=== PATIENT | male | born 1950 | race Caucasian/White ===

== ENCOUNTER → 2017-08-10 | Outpatient (CLI) | payer MEDICARE ==
[~2017-08-10] MED LIST: ASPI-515 PO; ATOR10TA9 PO; KRIL500C PO; LISI-167 PO; NAPR220C2 PO; OXYC-302 PO
== END | disposition home or self-care (01) ==
LOC: CFH 15:40
PROVIDERS: ATTEND Internal Medicine Cardiovascular Disease
DX: I08.0 Rheumatic disorders of both mitral and aortic valves (principal); E78.5 Hyperlipidemia, unspecified; I10 Essential (primary) hypertension; Z87.891 Personal history of nicotine dependence
CPT/HCPCS: 93306

== ENCOUNTER → 2018-08-13 | Outpatient (CLI) | payer MEDICARE ==
[~2018-08-13] MED LIST changes: +REGADENOSON 0.4 MG/5 ML SYRINGE ONE
== END | disposition home or self-care (01) ==
LOC: CFH 13:01
PROVIDERS: ATTEND Nurse Practitioner Primary Care
DX: R94.31 Abnormal electrocardiogram [ECG] [EKG] (principal); I25.10 Atherosclerotic heart disease of native coronary artery without angina pectoris; R00.1 Bradycardia, unspecified
CPT/HCPCS: 78452; 93017; A9502; J2785

== ENCOUNTER 2018-08-21 10:11 | Inpatient (IN) | payer MEDICARE ==
[~2018-08-21] VITALS: Ht 172.7 cm; Wt 79.7 kg
[~2018-08-21 10:11] MED LIST changes: -REGADENOSON 0.4 MG/5 ML SYRINGE ONE
[2018-08-21] MEDS ORDERED: SODIUM CHLORIDE 0.9% 1,000 ML IV ONE (10:38)
[2018-08-21 10:44] VITALS: BP 181/84
[2018-08-21 10:55] LABS: BASOPHILS # (AUTO) 0.08 x10^3/uL (0-0.1); BASOPHILS % (AUTO) 1 % (0-1); EOSINOPHILS # (AUTO) 0.24 x10^3/uL (0-0.4); EOSINOPHILS % (AUTO) 3 % (1-7); LYMPHOCYTES % (AUTO) 22 % (22-44); MD NO; MEAN CORPUSCULAR HEMOGLOBIN 34.8 pg (27.5-34.5); MEAN CORPUSCULAR HGB CONC 34.5 g/dL (33.2-36.2); MEAN CORPUSCULAR VOLUME 100.8 fL (81-97); MEAN PLATELET VOLUME 7.8 fL (7.4-10.4); MONOCYTES # (AUTO) 0.42 x10^3/uL (0.2-0.8); MONOCYTES % (AUTO) 6 % (2-9); NEUTROPHILS # (AUTO) 4.99 x10^3/uL (1.8-6.8); NEUTROPHILS % (AUTO) 68 % (42-75); PLATELET COUNT 185 x10^3/uL (130-400); RED BLOOD COUNT 4.65 x10^6/uL (4.38-5.82); RED CELL DISTRIBUTION WIDTH 14.4 % (9.4-14.8)
[2018-08-21] MEDS ORDERED: PLEASE ENTER HEIGHT AND WEIGHT MC SCH (11:00)
[2018-08-21] MEDS ORDERED: UBID100C41 PO (11:02)
[2018-08-21] MEDS ORDERED: HYDR200T72 PO (11:02)
[2018-08-21] MEDS ORDERED: HYDR-3245 PO (11:02)
[2018-08-21] MEDS ORDERED: MELO15TA24 PO (11:02)
[2018-08-21] MEDS ORDERED: METH2.5T PO (11:02)
[2018-08-21] MEDS ORDERED: FOLI-17 PO (11:02)
[2018-08-21] MEDS ORDERED: ROSU5TAB PO (11:02)
[2018-08-21] MEDS ORDERED: METO25TA91 PO (11:02)
[2018-08-21] MEDS ORDERED: CHOL100012 PO (11:02)
[2018-08-21] MEDS ORDERED: MEGA RED PO (11:02)
[2018-08-21 11:08] LABS: ALANINE AMINOTRANSFERASE 24 U/L (12-78); ALBUMIN 3.9 g/dL (3.4-5.0); ANION GAP 8 mmol/L (5-15); CALCIUM 9.1 mg/dL (8.5-10.1); CHLORIDE 111 mmol/L (98-107); CREATININE 0.95 mg/dL (0.7-1.3)
[2018-08-21 11:10] LABS: ALKALINE PHOSPHATASE 80 U/L (45-117); BILIRUBIN,TOTAL 0.7 mg/dL (0.2-1.0); TOTAL PROTEIN 7.6 g/dL (6.4-8.2)
[2018-08-21] MEDS ORDERED: MIDAZOLAM 1 MG/ML, 2ML ONE ×3 (11:52→13:11)
[2018-08-21] MEDS ORDERED: FENTANYL PF 100 MCG/2ML ONE ×2 (11:52→13:11)
[2018-08-21] MEDS ORDERED: BUPIVACAINE 0.25% ONE (11:53)
[2018-08-21] MEDS ORDERED: HEPARIN 1,000 UNITS/ML, 10ML ONE (13:16)
[2018-08-21] MEDS ORDERED: BIVALIRUDIN 250 MG ONE (13:17)
[2018-08-21] MEDS ORDERED: TICAGRELOR 90 MG TABLET ONE (13:17)
[2018-08-21] MEDS ORDERED: LABETALOL 5MG/ML, 20ML ONE (13:53)
[2018-08-21] MEDS ORDERED: hydrALAzine 20 MG/ML, 1ML ONE (13:55)
[2018-08-21 14:48] VITALS: BP 135/65
[2018-08-21] MEDS ORDERED: ACETAMINOPHEN 325 MG TABLET PO PRN (17:00)
[2018-08-21] MEDS ORDERED: ONDANSETRON 2MG/ML, 2ML IVPush PRN (17:00)
[2018-08-21] MEDS ORDERED: BISACODYL 5 MG EC TABLET PO PRN (17:00)
[2018-08-21] MEDS: HYDROcodone/APAP 10/325 MG TABLET PO PRN (17:26)
[2018-08-21 19:10] VITALS: BP 116/57
[2018-08-22 00:56] VITALS: BP 127/69
[2018-08-22 06:16] LABS: ALBUMIN 3.3 g/dL (3.4-5.0); ANION GAP 9 mmol/L (5-15); CALCIUM 8.5 mg/dL (8.5-10.1); CHLORIDE 112 mmol/L (98-107)
[2018-08-22 06:17] LABS: CREATININE 1.04 mg/dL (0.7-1.3)
[2018-08-22 08:24] VITALS: BP 129/50
[2018-08-22] MEDS: LISINOPRIL 10 MG TABLET PO SCH (09:00)
[2018-08-22] MEDS ORDERED: METOPROLOL SUCCINATE 25 MG TAB.ER.24H PO SCH (09:00)
[2018-08-22] MEDS ORDERED: MAGNESIUM HYDROXIDE 8%, 30ML UDC PO PRN (09:30)
[2018-08-22] MEDS ORDERED: CHLORHEXIDINE 15 ML UDC MM PRN (09:30)
[2018-08-22] MEDS ORDERED: INSULIN LISPRO 100 UNITS/ML, PEN SQ-INSULIN SCH (09:30)
[2018-08-22] MEDS ORDERED: METOPROLOL TARTRATE 25 MG TABLET PO ONE (09:30)
[2018-08-22] MEDS ORDERED: ACETAMINOPHEN 325 MG TABLET PO PRN (09:30)
[2018-08-22] MEDS ORDERED: LISINOPRIL 20 MG TABLET ONE (09:31)
[2018-08-22] MEDS ORDERED: LISINOPRIL 5 MG TABLET ONE (09:31)
[2018-08-22] MEDS: FOLIC ACID 1 MG TABLET PO SCH (09:38)
[2018-08-22] MEDS: ASPIRIN 81 MG TABLET EC PO SCH (09:38)
[2018-08-22 09:39] LABS: INTERNATIONAL NORMALIZED RATIO 1.04 (0.93-1.1); PROTHROMBIN TIME 10.7 Seconds (9.6-11.5)
[2018-08-22] MEDS: CHOLECALCIFEROL 1,000 UNIT TABLET PO SCH (09:39)
[2018-08-22 09:41] LABS: ALANINE AMINOTRANSFERASE 23 U/L (12-78); ALBUMIN 3.6 g/dL (3.4-5.0); ANION GAP 9 mmol/L (5-15); CHLORIDE 111 mmol/L (98-107); CREATININE 1.03 mg/dL (0.7-1.3)
[2018-08-22 09:42] LABS: BASOPHILS # (AUTO) 0.03 x10^3/uL (0-0.1); BASOPHILS % (AUTO) 0 % (0-1); EOSINOPHILS # (AUTO) 0.37 x10^3/uL (0-0.4); EOSINOPHILS % (AUTO) 5 % (1-7); LYMPHOCYTES % (AUTO) 15 % (22-44); MD NO; MEAN CORPUSCULAR HEMOGLOBIN 34.4 pg (27.5-34.5); MEAN CORPUSCULAR HGB CONC 33.9 g/dL (33.2-36.2); MEAN CORPUSCULAR VOLUME 101.3 fL (81-97); MEAN PLATELET VOLUME 7.9 fL (7.4-10.4); MONOCYTES % (AUTO) 6 % (2-9); NEUTROPHILS # (AUTO) 5.88 x10^3/uL (1.8-6.8); NEUTROPHILS % (AUTO) 74 % (42-75); PLATELET COUNT 173 x10^3/uL (130-400); RED BLOOD COUNT 4.57 x10^6/uL (4.38-5.82); RED CELL DISTRIBUTION WIDTH 14.1 % (9.4-14.8)
[2018-08-22 09:43] LABS: ALKALINE PHOSPHATASE 75 U/L (45-117); BILIRUBIN,TOTAL 0.9 mg/dL (0.2-1.0); TOTAL PROTEIN 7.3 g/dL (6.4-8.2)
[2018-08-22 10:16] LABS: HEMOGLOBIN A1C 5.5 % (4.2-6.3)
[2018-08-22] MEDS: HYDROcodone/APAP 10/325 MG TABLET PO PRN ×2 (11:04→16:32)
[2018-08-22] MEDS ORDERED: OMNIPAQUE 350 MG/ML, 100ML BOTTLE ONE (12:05)
[2018-08-22 14:19] VITALS: BP 153/79
[2018-08-22 14:19] LABS: MICROSCOPIC NOT IND
[2018-08-22 19:59] VITALS: BP 153/80
[2018-08-22] MEDS: SODIUM CHLORIDE FLUSH 10ML SYR IVF SCH (20:18)
[2018-08-23] VITALS (11 sets, daily range): BP systolic 94–159; BP diastolic 50–85
[2018-08-23] MEDS ORDERED: ALBUMIN HUMAN 5% 500 ML IV PRN ×2 (03:00→14:00)
[2018-08-23] MEDS: HYDROcodone/APAP 10/325 MG TABLET PO PRN (04:26)
[2018-08-23] MEDS ORDERED: METOPROLOL TARTRATE 50 MG TABLET PO ONE (05:00)
[2018-08-23] MEDS ORDERED: PAPAVERINE 30 MG/ML, 2ML ONE (06:15)
[2018-08-23] MEDS ORDERED: HEPARIN 1,000 UNITS/ML, 10ML ONE (06:15)
[2018-08-23] MEDS ORDERED: FENTANYL PF 250 MCG/5ML ONE ×4 (06:56)
[2018-08-23] MEDS ORDERED: MIDAZOLAM 10MG/2 ML ONE (06:56)
[2018-08-23] MEDS ORDERED: ROCURONIUM 10MG/ML,5ML ONE (06:59)
[2018-08-23] MEDS ORDERED: AMINOCAPROIC ACID 250 MG/ML, 20ML ONE (06:59)
[2018-08-23] MEDS ORDERED: PHENYLEPHRINE 10 MG in SODIUM CHLORIDE 0.9% 249 ML IV PRN (07:30)
[2018-08-23] MEDS ORDERED: REGULAR INSULIN 62.5 UNITS in SODIUM CHLORIDE 0.9% 249.375 ML IV PRN ×2 (07:30→11:07)
[2018-08-23] MEDS ORDERED: VANCOMYCIN 1,300 MG in SODIUM CHLORIDE 0.9% 250 ML IV PRN (07:30)
[2018-08-23] MEDS ORDERED: VANCOMYCIN 1,300 MG in SODIUM CHLORIDE 0.9% 250 ML IVPB ONE (07:30)
[2018-08-23] MEDS ORDERED: EPINEPHRINE 2 MG in SODIUM CHLORIDE 0.9% 248 ML IV SCH (07:30)
[2018-08-23] MEDS ORDERED: CEFUROXIME 1.5 GM in SODIUM CHLORIDE 0.9% 50 ML IVPB PRN (07:30)
[2018-08-23] MEDS ORDERED: POTASSIUM CHLORIDE 80 MEQ, SODIUM BICARBONATE 8.4% 10 MEQ, MAGNESIUM SULFATE 0.5 GM, LI... IV PRN ×3 (07:30)
[2018-08-23] MEDS ORDERED: DEXMEDETOMIDINE 200 MCG in SODIUM CHLORIDE 0.9% 48 ML IV SCH (07:30)
[2018-08-23] MEDS ORDERED: MANNITOL PMX 20% 500 ML IVPB PRN ×3 (07:30)
[2018-08-23] MEDS: CHOLECALCIFEROL 1,000 UNIT TABLET PO SCH (09:00)
[2018-08-23] MEDS: ASPIRIN 81 MG TABLET EC PO SCH (09:00)
[2018-08-23] MEDS: LISINOPRIL 10 MG TABLET PO SCH (09:00)
[2018-08-23] MEDS ORDERED: MUPIROCIN OINT 2%, 22GM TP SCH (09:00)
[2018-08-23] MEDS: DOCUSATE 100 MG CAPSULE PO SCH ×2 (09:00→20:46)
[2018-08-23] MEDS: FOLIC ACID 1 MG TABLET PO SCH (09:00)
[2018-08-23] MEDS: SODIUM CHLORIDE FLUSH 10ML SYR IVF SCH ×2 (09:00→21:53)
[2018-08-23] MEDS ORDERED: PROPOFOL 10 MG/ML, 20ML ONE (09:35)
[2018-08-23] MEDS ORDERED: PROTAMINE SULFATE 10 MG/ML, 25ML ONE ×3 (09:35→10:52)
[2018-08-23] MEDS ORDERED: EPINEPHRINE 1 MG/ML, 1ML ONE (09:36)
[2018-08-23] MEDS ORDERED: PHENYLEPHRINE 10 MG/ML ONE (09:36)
[2018-08-23] MEDS ORDERED: GLYCOPYRROLATE 0.2MG/1ML, 5ML ONE (10:14)
[2018-08-23] MEDS ORDERED: NITROGLYCERIN/D5W PMX 250 ML IV PRN (11:07)
[2018-08-23] MEDS ORDERED: VASOPRESSIN 50 UNIT in SODIUM CHLORIDE 0.9% 247.5 ML IV PRN (11:07)
[2018-08-23] MEDS ORDERED: SODIUM CHLORIDE 0.9% 1,000 ML IV PRN (11:07)
[2018-08-23] MEDS ORDERED: DOBUTAMINE 250 MG in SODIUM CHLORIDE 0.9% 230 ML IV PRN (11:07)
[2018-08-23] MEDS ORDERED: LIDOCAINE 2% 100MG/5ML SYRINGE ONE (11:24)
[2018-08-23] MEDS ORDERED: SODIUM BICARB 8.4%, 50ML SYRINGE ONE (11:24)
[2018-08-23] MEDS ORDERED: HEPARIN 1,000 UNITS/ML, 30ML ONE ×2 (11:25→13:48)
[2018-08-23] MEDS ORDERED: ALBUMIN HUMAN 25% 50 ML ONE (11:25)
[2018-08-23] MEDS: KSCALE TO 4.5 IV SCH ×3 (11:30→23:21)
[2018-08-23] MEDS ORDERED: DEXTROSE 4 GM TAB.CHEW PO PRN (11:30)
[2018-08-23] MEDS ORDERED: BISACODYL 10 MG SUPP PR PRN (11:30)
[2018-08-23] MEDS ORDERED: PROCHLORPERAZINE 5 MG/ML, 2ML IVPush PRN (11:30)
[2018-08-23] MEDS ORDERED: SODIUM BICARB 8.4%, 50ML SYRINGE IV PRN (11:30)
[2018-08-23] MEDS ORDERED: EPINEPHRINE 2 MG in SODIUM CHLORIDE 0.9% 248 ML IV PRN (11:30)
[2018-08-23] MEDS ORDERED: INSULIN REGULAR 100 UNITS/ML, 3ML VIAL IVPush PRN (11:30)
[2018-08-23] MEDS ORDERED: GLUCAGON 1 MG IM PRN (11:30)
[2018-08-23] MEDS ORDERED: MIDAZOLAM 1 MG/ML, 5ML IVPush PRN (11:30)
[2018-08-23] MEDS ORDERED: ACETAMINOPHEN 325 MG TABLET PO PRN (11:30)
[2018-08-23] MEDS ORDERED: ONDANSETRON 2MG/ML, 2ML IVPush PRN (11:30)
[2018-08-23] MEDS ORDERED: DEXTROSE 50%, 50ML SYRINGE IVPush PRN (11:30)
[2018-08-23] MEDS ORDERED: ACETAMINOPHEN 650 MG SUPP PR PRN (11:30)
[2018-08-23] MEDS ORDERED: BISACODYL 5 MG EC TABLET PO PRN (11:30)
[2018-08-23 11:52] LABS: GLUCOSE BY BLOOD GAS ANALYZER 116 mg/dL (70-110); HEMOGLOBIN BY BLOOD GAS ANALYZ 12.9 g/dL (14.0-18.0); POTASSIUM BY BLOOD GAS ANALYZR 3.6 mmol/L (3.6-5.5)
[2018-08-23 12:02] LABS: INTERNATIONAL NORMALIZED RATIO 1.27 (0.93-1.1)
[2018-08-23] MEDS: MAGNESIUM SULFATE 1 GM in SODIUM CHLORIDE 0.9% 50 ML IVPB SCH (12:18)
[2018-08-23] MEDS ORDERED: NOVOSEVEN RT (FACTOR VIIA) RECOMB 1,000 MCG IVPush STA (12:54)
[2018-08-23] MEDS ORDERED: PROTAMINE SULFATE 50 MG in SODIUM CHLORIDE 0.9% 50 ML IV ONE (13:00)
[2018-08-23] MEDS ORDERED: POTASSIUM CHLORIDE PMX 100 ML IVPB ONE (13:00)
[2018-08-23] MEDS: DEXMEDETOMIDINE 200 MCG in SODIUM CHLORIDE 0.9% 48 ML IV PRN ×4 (13:05→21:00)
[2018-08-23] MEDS: morphine SULFATE 10 MG/ML, 1ML IVPush PRN ×4 (13:43→22:33)
[2018-08-23] MEDS ORDERED: POTASSIUM CHLORIDE 30 MEQ in SODIUM CHLORIDE 0.9% 100 ML IV ONE (16:00)
[2018-08-23] MEDS: INSULIN LISPRO 100 UNITS/ML, PEN SQ-INSULIN SCH ×2 (16:06→20:47)
[2018-08-23] MEDS: LACTATED RINGERS 1,000 ML IV PRN ×2 (17:35→17:36)
[2018-08-23] MEDS ORDERED: ALBUMIN HUMAN 5% 500 ML IV ONE (18:00)
[2018-08-23] MEDS ORDERED: CALCIUM CHLORIDE 13.6 MEQ in SODIUM CHLORIDE 0.9% 100 ML IV ONE (18:00)
[2018-08-23] MEDS: VANCOMYCIN 1,300 MG in SODIUM CHLORIDE 0.9% 250 ML IVPB SCH (19:52)
[2018-08-23] MEDS ORDERED: EPINEPHRINE 4 MG in SODIUM CHLORIDE 0.9% 246 ML IV PRN (21:00)
[2018-08-23] MEDS: CHLORHEXIDINE 15 ML UDC PO SCH (21:53)
[2018-08-23] MEDS: MUPIROCIN OINT 2%, 22GM NAS SCH (21:53)
[2018-08-24] MEDS: DEXMEDETOMIDINE 200 MCG in SODIUM CHLORIDE 0.9% 48 ML IV PRN ×4 (00:07→19:42)
[2018-08-24] MEDS: morphine SULFATE 10 MG/ML, 1ML IVPush PRN ×4 (01:26→08:32)
[2018-08-24 04:24] LABS: BASOPHILS # (AUTO) 0.04 x10^3/uL (0-0.1); BASOPHILS % (AUTO) 0 % (0-1); EOSINOPHILS # (AUTO) 0.11 x10^3/uL (0-0.4); EOSINOPHILS % (AUTO) 1 % (1-7); LYMPHOCYTES # (AUTO) 1.02 x10^3/uL (1-3.4); LYMPHOCYTES % (AUTO) 10 % (22-44); MD NO; MEAN CORPUSCULAR HEMOGLOBIN 34.7 pg (27.5-34.5); MEAN CORPUSCULAR HGB CONC 34.8 g/dL (33.2-36.2); MEAN CORPUSCULAR VOLUME 99.8 fL (81-97); MEAN PLATELET VOLUME 7.9 fL (7.4-10.4); MONOCYTES # (AUTO) 0.87 x10^3/uL (0.2-0.8); MONOCYTES % (AUTO) 9 % (2-9); NEUTROPHILS % (AUTO) 79 % (42-75); PLATELET COUNT 121 x10^3/uL (130-400); RED BLOOD COUNT 2.47 x10^6/uL (4.38-5.82)
[2018-08-24 04:29] LABS: ALBUMIN 2.9 g/dL (3.4-5.0); ANION GAP 5 mmol/L (5-15); CALCIUM 7.9 mg/dL (8.5-10.1); CHLORIDE 116 mmol/L (98-107); CREATININE 0.66 mg/dL (0.7-1.3)
[2018-08-24] MEDS ORDERED: POTASSIUM CHLORIDE PMX 100 ML IV ONE (05:00)
[2018-08-24] MEDS: KSCALE TO 4.5 IV SCH (05:30)
[2018-08-24] MEDS: INSULIN LISPRO 100 UNITS/ML, PEN SQ-INSULIN SCH ×4 (07:00→21:00)
[2018-08-24] MEDS: VANCOMYCIN 1,300 MG in SODIUM CHLORIDE 0.9% 250 ML IVPB SCH (07:50)
[2018-08-24] MEDS: SODIUM CHLORIDE FLUSH 10ML SYR IVF SCH ×2 (07:51→21:42)
[2018-08-24] MEDS: CHLORHEXIDINE 15 ML UDC PO SCH ×2 (09:00→21:41)
[2018-08-24] MEDS: CHOLECALCIFEROL 1,000 UNIT TABLET PO SCH (09:00)
[2018-08-24] MEDS: METOPROLOL TARTRATE 25 MG TABLET PO/NG SCH ×2 (09:00→21:00)
[2018-08-24] MEDS: FOLIC ACID 1 MG TABLET PO SCH (09:00)
[2018-08-24] MEDS: ASPIRIN 81 MG TABLET EC PO SCH (09:00)
[2018-08-24] MEDS: DOCUSATE 100 MG CAPSULE PO SCH ×2 (09:00→21:00)
[2018-08-24] MEDS: FENTANYL PF 100 MCG/2ML IVPush PRN ×3 (09:28→21:41)
[2018-08-24] MEDS ORDERED: MIDAZOLAM 1 MG/ML, 5ML IVPush ONE (10:00)
[2018-08-24] MEDS ORDERED: FENTANYL PF 100 MCG/2ML IVPush ONE (10:00)
[2018-08-24] MEDS ORDERED: FUROSEMIDE 20 MG/2 ML IV ONE (10:00)
[2018-08-24] MEDS: MUPIROCIN OINT 2%, 22GM NAS SCH ×2 (12:09→21:42)
[2018-08-24] MEDS: MAGNESIUM SULFATE 1 GM in SODIUM CHLORIDE 0.9% 50 ML IVPB SCH (12:11)
[2018-08-24] MEDS ORDERED: AMIODARONE 150 MG in DEXTROSE 5% 100 ML IVPB ONE (13:05)
[2018-08-24] MEDS ORDERED: AMIODARONE 900 MG in DEXTROSE 5% 482 ML IV PRN (13:05)
[2018-08-24] MEDS ORDERED: FILTER 0.22 MICRON IV PRN (13:30)
[2018-08-24] MEDS: PHENYLEPHRINE 10 MG in SODIUM CHLORIDE 0.9% 249 ML IV PRN ×2 (14:13→19:42)
[2018-08-24 14:52] LABS: MICROSCOPIC INDICATED
[2018-08-24 16:36] LABS: CULTURE INDICATED? NO
[2018-08-24] MEDS: POTASSIUM CHLORIDE 10 MEQ TABLET.ER PO SCH (17:00)
[2018-08-24] MEDS: FUROSEMIDE 20 MG/2 ML IV SCH (17:17)
[2018-08-24] MEDS: OXYcodone IR 5MG TABLET PO PRN (22:50)
[2018-08-25] MEDS: OXYcodone IR 5MG TABLET PO PRN ×5 (01:48→15:19)
[2018-08-25] MEDS: FENTANYL PF 100 MCG/2ML IVPush PRN (05:06)
[2018-08-25 05:40] LABS: BASOPHILS # (AUTO) 0.03 x10^3/uL (0-0.1); BASOPHILS % (AUTO) 0 % (0-1); EOSINOPHILS # (AUTO) 0.07 x10^3/uL (0-0.4); EOSINOPHILS % (AUTO) 1 % (1-7); LYMPHOCYTES # (AUTO) 1.17 x10^3/uL (1-3.4); LYMPHOCYTES % (AUTO) 9 % (22-44); MD NO; MEAN CORPUSCULAR HEMOGLOBIN 34.1 pg (27.5-34.5); MEAN CORPUSCULAR HGB CONC 34.3 g/dL (33.2-36.2); MEAN CORPUSCULAR VOLUME 99.5 fL (81-97); MEAN PLATELET VOLUME 8.3 fL (7.4-10.4); MONOCYTES % (AUTO) 8 % (2-9); NEUTROPHILS # (AUTO) 10.89 x10^3/uL (1.8-6.8); NEUTROPHILS % (AUTO) 83 % (42-75); PLATELET COUNT 127 x10^3/uL (130-400); RED BLOOD COUNT 2.36 x10^6/uL (4.38-5.82); RED CELL DISTRIBUTION WIDTH 15.6 % (9.4-14.8)
[2018-08-25 05:53] LABS: CHLORIDE 114 mmol/L (98-107)
[2018-08-25 05:58] LABS: ANION GAP 6 mmol/L (5-15); CALCIUM 8.3 mg/dL (8.5-10.1); CREATININE 0.75 mg/dL (0.7-1.3)
[2018-08-25] MEDS: INSULIN LISPRO 100 UNITS/ML, PEN SQ-INSULIN SCH ×4 (07:00→21:00)
[2018-08-25] MEDS: DOCUSATE 100 MG CAPSULE PO SCH ×2 (09:00→21:37)
[2018-08-25] MEDS: METOPROLOL TARTRATE 25 MG TABLET PO/NG SCH ×2 (09:00→21:00)
[2018-08-25] MEDS: ENOXAPARIN 40 MG/0.4 ML SQ SCH (09:00)
[2018-08-25] MEDS: FUROSEMIDE 20 MG/2 ML IV SCH ×2 (09:00→17:27)
[2018-08-25] MEDS: FOLIC ACID 1 MG TABLET PO SCH (09:00)
[2018-08-25] MEDS: CHOLECALCIFEROL 1,000 UNIT TABLET PO SCH (09:01)
[2018-08-25] MEDS: SODIUM CHLORIDE FLUSH 10ML SYR IVF SCH ×2 (09:01→21:38)
[2018-08-25] MEDS: ASPIRIN 81 MG TABLET EC PO SCH (09:01)
[2018-08-25] MEDS: CHLORHEXIDINE 15 ML UDC PO SCH (09:01)
[2018-08-25] MEDS: POTASSIUM CHLORIDE 10 MEQ TABLET.ER PO SCH ×2 (09:09→17:27)
[2018-08-25] MEDS: HYDROcodone/APAP 10/325 MG TABLET PO PRN ×4 (10:29→23:48)
[2018-08-25] MEDS: MAGNESIUM SULFATE 1 GM in SODIUM CHLORIDE 0.9% 50 ML IVPB SCH (11:17)
[2018-08-25] MEDS: MUPIROCIN OINT 2%, 22GM NAS SCH ×2 (12:00→21:38)
[2018-08-26] VITALS (8 sets, daily range): BP systolic 114–143; BP diastolic 53–65
[2018-08-26 04:23] LABS: MEAN CORPUSCULAR HGB CONC 34.7 g/dL (33.2-36.2); MEAN CORPUSCULAR VOLUME 100.8 fL (81-97); MEAN PLATELET VOLUME 8.5 fL (7.4-10.4); PLATELET COUNT 109 x10^3/uL (130-400); RED BLOOD COUNT 2.15 x10^6/uL (4.38-5.82); RED CELL DISTRIBUTION WIDTH 15.2 % (9.4-14.8)
[2018-08-26 04:32] LABS: ANION GAP 8 mmol/L (5-15); CALCIUM 7.9 mg/dL (8.5-10.1); CHLORIDE 109 mmol/L (98-107); CREATININE 0.69 mg/dL (0.7-1.3)
[2018-08-26 04:34] LABS: BASOPHILS # (AUTO) 0.01 x10^3/uL (0-0.1); BASOPHILS % (AUTO) 0 % (0-1); EOSINOPHILS # (AUTO) 0.33 x10^3/uL (0-0.4); EOSINOPHILS % (AUTO) 4 % (1-7); LYMPHOCYTES # (AUTO) 0.88 x10^3/uL (1-3.4); LYMPHOCYTES % (AUTO) 10 % (22-44); MD SCAN; MONOCYTES # (AUTO) 0.59 x10^3/uL (0.2-0.8); MONOCYTES % (AUTO) 7 % (2-9); NEUTROPHILS # (AUTO) 6.59 x10^3/uL (1.8-6.8); NEUTROPHILS % (AUTO) 79 % (42-75)
[2018-08-26] MEDS: INSULIN LISPRO 100 UNITS/ML, PEN SQ-INSULIN SCH ×4 (07:00→21:00)
[2018-08-26] MEDS: HYDROcodone/APAP 10/325 MG TABLET PO PRN ×3 (07:52→20:25)
[2018-08-26] MEDS: FUROSEMIDE 20 MG/2 ML IV SCH ×2 (07:52→17:17)
[2018-08-26] MEDS: FOLIC ACID 1 MG TABLET PO SCH (07:55)
[2018-08-26] MEDS: ASPIRIN 81 MG TABLET EC PO SCH (07:55)
[2018-08-26] MEDS: CHOLECALCIFEROL 1,000 UNIT TABLET PO SCH (07:55)
[2018-08-26] MEDS: POTASSIUM CHLORIDE 10 MEQ TABLET.ER PO SCH ×2 (07:55→17:17)
[2018-08-26] MEDS: ENOXAPARIN 40 MG/0.4 ML SQ SCH (08:26)
[2018-08-26] MEDS: METOPROLOL TARTRATE 25 MG TABLET PO/NG SCH ×2 (08:26→21:00)
[2018-08-26] MEDS ORDERED: POTASSIUM CHLORIDE 20 MEQ TAB.ER.PRT PO ONE (08:30)
[2018-08-26] MEDS: CLOPIDOGREL 75 MG TABLET PO SCH (09:00)
[2018-08-26] MEDS: MUPIROCIN OINT 2%, 22GM NAS SCH ×2 (09:00→21:25)
[2018-08-26] MEDS: SODIUM CHLORIDE FLUSH 10ML SYR IVF SCH ×2 (09:47→21:00)
[2018-08-26] MEDS: DOCUSATE 100 MG CAPSULE PO SCH ×2 (09:47→21:22)
[2018-08-26] MEDS: ALBUTEROL/IPRATROPIUM 2.5MG/0.5MG, 3 ML NPPB SCH ×3 (10:54→20:00)
[2018-08-26] MEDS ORDERED: ALBUTEROL/IPRATROPIUM 2.5MG/0.5MG, 3 ML NPPB PRN (11:00)
[2018-08-27] MEDS: HYDROcodone/APAP 10/325 MG TABLET PO PRN ×4 (04:04→17:43)
[2018-08-27 04:30] LABS: ANION GAP 7 mmol/L (5-15); CALCIUM 7.5 mg/dL (8.5-10.1); CHLORIDE 107 mmol/L (98-107); CREATININE 0.59 mg/dL (0.7-1.3)
[2018-08-27 04:46] LABS: MD YES; MEAN CORPUSCULAR HEMOGLOBIN 32.9 pg (27.5-34.5); MEAN CORPUSCULAR HGB CONC 34.2 g/dL (33.2-36.2); MEAN CORPUSCULAR VOLUME 96.1 fL (81-97); MEAN PLATELET VOLUME 8.1 fL (7.4-10.4); PLATELET COUNT 147 x10^3/uL (130-400); RED BLOOD COUNT 2.79 x10^6/uL (4.38-5.82)
[2018-08-27 06:48] LABS: ANISOCYTOSIS 1+; EOS#(MANUAL) 0.23 x10^3/uL (0.0-0.4); EOS% (MANUAL) 3 % (1-7); LYMPH#(MANUAL) 1.44 x10^3/uL (1-3.4); LYMPHS% (MANUAL) 19 % (22-44); MONOS#(MANUAL) 0.53 x10^3/uL (0.3-2.7); MONOS% (MANUAL) 7 % (2-9); SEGS% (MANUAL) 71 % (42-75)
[2018-08-27 06:49] LABS: <PLATELET ESTIMATE> ADEQUATE; <PLT MORPHOLOGY> NORMAL PLT MORPH; POLYCHROMASIA 1+
[2018-08-27] MEDS: INSULIN LISPRO 100 UNITS/ML, PEN SQ-INSULIN SCH ×4 (07:00→21:00)
[2018-08-27] MEDS: ALBUTEROL/IPRATROPIUM 2.5MG/0.5MG, 3 ML NPPB SCH ×3 (07:00→18:57)
[2018-08-27] MEDS ORDERED: POTASSIUM CHLORIDE 20 MEQ TAB.ER.PRT PO ONE (08:30)
[2018-08-27] MEDS: FUROSEMIDE 20 MG/2 ML IV SCH ×2 (08:44→16:33)
[2018-08-27] MEDS: ASPIRIN 81 MG TABLET EC PO SCH (08:45)
[2018-08-27] MEDS: DOCUSATE 100 MG CAPSULE PO SCH ×2 (08:45→21:13)
[2018-08-27] MEDS: FOLIC ACID 1 MG TABLET PO SCH (08:45)
[2018-08-27] MEDS: CHOLECALCIFEROL 1,000 UNIT TABLET PO SCH (08:45)
[2018-08-27] MEDS: CLOPIDOGREL 75 MG TABLET PO SCH (08:47)
[2018-08-27] MEDS: ENOXAPARIN 40 MG/0.4 ML SQ SCH (09:00)
[2018-08-27] MEDS: MUPIROCIN OINT 2%, 22GM NAS SCH ×2 (09:00→21:00)
[2018-08-27] MEDS ORDERED: MAGNESIUM HYDROXIDE 8%, 30ML UDC PO PRN (09:00)
[2018-08-27] MEDS: SODIUM CHLORIDE FLUSH 10ML SYR IVF SCH ×3 (09:02→21:19)
[2018-08-27] MEDS: HYDROXYCHLOROQUINE 200 MG TABLET PO SCH (11:32)
[2018-08-27 13:03] VITALS: BP 149/82
[2018-08-27] MEDS: POTASSIUM CHLORIDE 10 MEQ TABLET.ER PO SCH (16:33)
[2018-08-27 19:20] VITALS: BP 119/77
[2018-08-27] MEDS: TEMPLATE NON-FORMULARY MED. (Rosuvastatin Calcium** (Crestor**) 5 MG) PO SCH (21:00)
[2018-08-28] MEDS: HYDROcodone/APAP 10/325 MG TABLET PO PRN ×4 (00:06→16:25)
[2018-08-28 00:13] VITALS: BP 167/75
[2018-08-28 05:43] LABS: ANION GAP 5 mmol/L (5-15); CALCIUM 8.3 mg/dL (8.5-10.1); CHLORIDE 107 mmol/L (98-107)
[2018-08-28 05:45] LABS: CREATININE 0.64 mg/dL (0.7-1.3)
[2018-08-28 05:47] LABS: BASOPHILS # (AUTO) 0.04 x10^3/uL (0-0.1); BASOPHILS % (AUTO) 1 % (0-1); EOSINOPHILS # (AUTO) 0.41 x10^3/uL (0-0.4); EOSINOPHILS % (AUTO) 7 % (1-7); LYMPHOCYTES # (AUTO) 0.93 x10^3/uL (1-3.4); LYMPHOCYTES % (AUTO) 16 % (22-44); MD NO; MEAN CORPUSCULAR HGB CONC 35.1 g/dL (33.2-36.2); MEAN CORPUSCULAR VOLUME 96.9 fL (81-97); MEAN PLATELET VOLUME 7.8 fL (7.4-10.4); MONOCYTES # (AUTO) 0.68 x10^3/uL (0.2-0.8); MONOCYTES % (AUTO) 11 % (2-9); NEUTROPHILS # (AUTO) 3.88 x10^3/uL (1.8-6.8); NEUTROPHILS % (AUTO) 66 % (42-75); PLATELET COUNT 190 x10^3/uL (130-400); RED BLOOD COUNT 2.93 x10^6/uL (4.38-5.82); RED CELL DISTRIBUTION WIDTH 17.1 % (9.4-14.8)
[2018-08-28] MEDS: ALBUTEROL/IPRATROPIUM 2.5MG/0.5MG, 3 ML NPPB SCH (06:25)
[2018-08-28 07:23] VITALS: BP 150/76
[2018-08-28] MEDS: ENOXAPARIN 40 MG/0.4 ML SQ SCH (08:05)
[2018-08-28] MEDS: POTASSIUM CHLORIDE 10 MEQ TABLET.ER PO SCH ×2 (08:12→20:48)
[2018-08-28] MEDS: FOLIC ACID 1 MG TABLET PO SCH (08:12)
[2018-08-28] MEDS: CHOLECALCIFEROL 1,000 UNIT TABLET PO SCH (08:12)
[2018-08-28] MEDS: CLOPIDOGREL 75 MG TABLET PO SCH (08:13)
[2018-08-28] MEDS: HYDROXYCHLOROQUINE 200 MG TABLET PO SCH (08:13)
[2018-08-28] MEDS: ASPIRIN 81 MG TABLET EC PO SCH (08:13)
[2018-08-28] MEDS: LISINOPRIL 5 MG TABLET PO SCH ×2 (08:13→20:48)
[2018-08-28] MEDS: DOCUSATE 100 MG CAPSULE PO SCH ×2 (08:13→20:49)
[2018-08-28] MEDS: SODIUM CHLORIDE FLUSH 10ML SYR IVF SCH ×4 (08:18→20:51)
[2018-08-28] MEDS: MUPIROCIN OINT 2%, 22GM NAS SCH ×2 (08:18→20:48)
[2018-08-28] MEDS ORDERED: FUROSEMIDE 40 MG/4 ML IV ONE (11:00)
[2018-08-28 13:46] VITALS: BP 139/75
[2018-08-28 18:45] VITALS: BP 110/64
[2018-08-28] MEDS: FUROSEMIDE 40 MG/4 ML IV SCH (20:47)
[2018-08-28] MEDS: TEMPLATE NON-FORMULARY MED. (Rosuvastatin Calcium** (Crestor**) 5 MG) PO SCH (20:49)
[2018-08-29 01:16] VITALS: BP 123/70
[2018-08-29] MEDS: HYDROcodone/APAP 10/325 MG TABLET PO PRN (01:20)
[2018-08-29 05:24] LABS: ANION GAP 6 mmol/L (5-15); CALCIUM 8.6 mg/dL (8.5-10.1); CHLORIDE 105 mmol/L (98-107); CREATININE 0.86 mg/dL (0.7-1.3)
[2018-08-29] MEDS: ENOXAPARIN 40 MG/0.4 ML SQ SCH (07:30)
[2018-08-29] MEDS: DOCUSATE 100 MG CAPSULE PO SCH ×2 (07:52→20:55)
[2018-08-29] MEDS: FUROSEMIDE 40 MG/4 ML IV SCH ×2 (07:52→17:51)
[2018-08-29 08:08] VITALS: BP 128/73
[2018-08-29] MEDS: POTASSIUM CHLORIDE 10 MEQ TABLET.ER PO SCH ×2 (08:24→17:48)
[2018-08-29] MEDS: ASPIRIN 81 MG TABLET EC PO SCH (08:24)
[2018-08-29] MEDS: SODIUM CHLORIDE FLUSH 10ML SYR IVF SCH ×3 (08:24→20:56)
[2018-08-29] MEDS: CHOLECALCIFEROL 1,000 UNIT TABLET PO SCH (08:25)
[2018-08-29] MEDS: CLOPIDOGREL 75 MG TABLET PO SCH (08:25)
[2018-08-29] MEDS: FOLIC ACID 1 MG TABLET PO SCH (08:25)
[2018-08-29] MEDS: LISINOPRIL 5 MG TABLET PO SCH ×2 (08:25→20:55)
[2018-08-29] MEDS: HYDROXYCHLOROQUINE 200 MG TABLET PO SCH (08:26)
[2018-08-29] MEDS: HYDROcodone/APAP 5/325 TABLET PO PRN ×3 (11:49→21:57)
[2018-08-29 13:07] VITALS: BP 121/78
[2018-08-29 20:00] VITALS: BP 104/65
[2018-08-29] MEDS: TEMPLATE NON-FORMULARY MED. (Rosuvastatin Calcium** (Crestor**) 5 MG) PO SCH (20:55)
[2018-08-30 02:00] VITALS: BP 113/66
[2018-08-30] MEDS: HYDROcodone/APAP 5/325 TABLET PO PRN ×5 (04:48→21:28)
[2018-08-30 05:08] LABS: CALCIUM 8.9 mg/dL (8.5-10.1); CHLORIDE 105 mmol/L (98-107)
[2018-08-30 05:11] LABS: ANION GAP 7 mmol/L (5-15); CREATININE 0.84 mg/dL (0.7-1.3)
[2018-08-30 07:31] VITALS: BP 115/71
[2018-08-30] MEDS: ASPIRIN 81 MG TABLET EC PO SCH (08:40)
[2018-08-30] MEDS: CLOPIDOGREL 75 MG TABLET PO SCH (08:40)
[2018-08-30] MEDS: CHOLECALCIFEROL 1,000 UNIT TABLET PO SCH (08:40)
[2018-08-30] MEDS: DOCUSATE 100 MG CAPSULE PO SCH ×2 (08:40→20:55)
[2018-08-30] MEDS: ENOXAPARIN 40 MG/0.4 ML SQ SCH (08:40)
[2018-08-30] MEDS: SODIUM CHLORIDE FLUSH 10ML SYR IVF SCH ×2 (08:40→20:56)
[2018-08-30] MEDS: HYDROXYCHLOROQUINE 200 MG TABLET PO SCH (08:41)
[2018-08-30] MEDS: LISINOPRIL 5 MG TABLET PO SCH ×2 (08:41→20:55)
[2018-08-30] MEDS: FOLIC ACID 1 MG TABLET PO SCH (08:41)
[2018-08-30] MEDS: FUROSEMIDE 40 MG/4 ML IV SCH ×2 (08:42→16:10)
[2018-08-30] MEDS: POTASSIUM CHLORIDE 10 MEQ TABLET.ER PO SCH ×2 (08:42→16:10)
[2018-08-30 13:33] VITALS: BP 106/66
[2018-08-30 20:03] VITALS: BP 101/62
[2018-08-30] MEDS: TEMPLATE NON-FORMULARY MED. (Rosuvastatin Calcium** (Crestor**) 5 MG) PO SCH (20:56)
[2018-08-31] MEDS: HYDROcodone/APAP 5/325 TABLET PO PRN ×5 (02:34→21:45)
[2018-08-31 02:35] VITALS: BP 115/62
[2018-08-31 05:20] LABS: ANION GAP 10 mmol/L (5-15); CALCIUM 8.8 mg/dL (8.5-10.1); CHLORIDE 105 mmol/L (98-107); CREATININE 0.93 mg/dL (0.7-1.3)
[2018-08-31 08:15] VITALS: BP 123/72
[2018-08-31] MEDS: DOCUSATE 100 MG CAPSULE PO SCH ×2 (08:21→20:52)
[2018-08-31] MEDS: ENOXAPARIN 40 MG/0.4 ML SQ SCH (08:21)
[2018-08-31] MEDS: CHOLECALCIFEROL 1,000 UNIT TABLET PO SCH (08:21)
[2018-08-31] MEDS: SODIUM CHLORIDE FLUSH 10ML SYR IVF SCH ×2 (08:21→20:53)
[2018-08-31] MEDS: ASPIRIN 81 MG TABLET EC PO SCH (08:22)
[2018-08-31] MEDS: HYDROXYCHLOROQUINE 200 MG TABLET PO SCH (08:22)
[2018-08-31] MEDS: CLOPIDOGREL 75 MG TABLET PO SCH (08:22)
[2018-08-31] MEDS: LISINOPRIL 5 MG TABLET PO SCH ×2 (08:22→20:52)
[2018-08-31] MEDS: FOLIC ACID 1 MG TABLET PO SCH (08:22)
[2018-08-31 14:33] VITALS: BP 102/60
[2018-08-31] MEDS ORDERED: SODIUM CHLORIDE 0.9%, 500ML IVBOLUS ONE (18:00)
[2018-08-31 20:18] VITALS: BP 111/64
[2018-08-31] MEDS: TEMPLATE NON-FORMULARY MED. (Rosuvastatin Calcium** (Crestor**) 5 MG) PO SCH (20:52)
[2018-09-01 03:55] VITALS: BP 117/67
[2018-09-01] MEDS: HYDROcodone/APAP 5/325 TABLET PO PRN ×4 (04:50→18:57)
[2018-09-01 05:20] LABS: CHLORIDE 107 mmol/L (98-107)
[2018-09-01 05:25] LABS: ANION GAP 8 mmol/L (5-15); CALCIUM 8.7 mg/dL (8.5-10.1); CREATININE 0.85 mg/dL (0.7-1.3)
[2018-09-01 07:15] VITALS: BP 100/59
[2018-09-01] MEDS: ASPIRIN 81 MG TABLET EC PO SCH (10:38)
[2018-09-01] MEDS: DOCUSATE 100 MG CAPSULE PO SCH (10:38)
[2018-09-01] MEDS: CLOPIDOGREL 75 MG TABLET PO SCH (10:38)
[2018-09-01] MEDS: CHOLECALCIFEROL 1,000 UNIT TABLET PO SCH (10:39)
[2018-09-01] MEDS: ENOXAPARIN 40 MG/0.4 ML SQ SCH (10:39)
[2018-09-01] MEDS: FOLIC ACID 1 MG TABLET PO SCH (10:39)
[2018-09-01] MEDS: SODIUM CHLORIDE FLUSH 10ML SYR IVF SCH ×2 (10:42→19:26)
[2018-09-01 10:43] VITALS: BP 102/64
[2018-09-01] MEDS: LISINOPRIL 5 MG TABLET PO SCH ×2 (10:51→19:26)
[2018-09-01] MEDS: HYDROXYCHLOROQUINE 200 MG TABLET PO SCH (10:51)
[2018-09-01 12:34] VITALS: BP 108/65
[2018-09-01] MEDS: TEMPLATE NON-FORMULARY MED. (Rosuvastatin Calcium** (Crestor**) 5 MG) PO SCH (19:26)
[2018-09-01 19:42] VITALS: BP 138/67
[2018-09-02 00:20] VITALS: BP 121/70
[2018-09-02] MEDS: HYDROcodone/APAP 5/325 TABLET PO PRN ×5 (00:26→20:58)
[2018-09-02 06:10] LABS: ANION GAP 8 mmol/L (5-15); CALCIUM 8.6 mg/dL (8.5-10.1); CHLORIDE 107 mmol/L (98-107)
[2018-09-02 06:13] LABS: CREATININE 0.85 mg/dL (0.7-1.3)
[2018-09-02 07:12] VITALS: BP 129/77
[2018-09-02] MEDS: CHOLECALCIFEROL 1,000 UNIT TABLET PO SCH (08:38)
[2018-09-02] MEDS: HYDROXYCHLOROQUINE 200 MG TABLET PO SCH (08:38)
[2018-09-02] MEDS: ASPIRIN 81 MG TABLET EC PO SCH (08:38)
[2018-09-02] MEDS: LISINOPRIL 5 MG TABLET PO SCH ×2 (08:38→20:58)
[2018-09-02] MEDS: DOCUSATE 100 MG CAPSULE PO SCH (08:38)
[2018-09-02] MEDS: CLOPIDOGREL 75 MG TABLET PO SCH (08:38)
[2018-09-02] MEDS: FOLIC ACID 1 MG TABLET PO SCH (08:39)
[2018-09-02] MEDS: SODIUM CHLORIDE FLUSH 10ML SYR IVF SCH ×2 (08:39→20:59)
[2018-09-02] MEDS: ENOXAPARIN 40 MG/0.4 ML SQ SCH (08:41)
[2018-09-02 12:24] VITALS: BP 101/60
[2018-09-02] MEDS: ALBUTEROL/IPRATROPIUM 2.5MG/0.5MG, 3 ML NPPB SCH ×3 (12:25→20:30)
[2018-09-02 18:50] VITALS: BP 103/64
[2018-09-02] MEDS: TEMPLATE NON-FORMULARY MED. (Rosuvastatin Calcium** (Crestor**) 5 MG) PO SCH (20:59)
[2018-09-03] MEDS: HYDROcodone/APAP 5/325 TABLET PO PRN ×5 (01:02→18:54)
[2018-09-03 01:05] VITALS: BP 129/65
[2018-09-03 06:10] LABS: ANION GAP 6 mmol/L (5-15); CALCIUM 8.6 mg/dL (8.5-10.1); CHLORIDE 108 mmol/L (98-107); CREATININE 0.82 mg/dL (0.7-1.3)
[2018-09-03] MEDS: ALBUTEROL/IPRATROPIUM 2.5MG/0.5MG, 3 ML NPPB SCH ×3 (07:00→15:15)
[2018-09-03] MEDS ORDERED: CLOP75TA PO ×2 (08:54→13:03)
[2018-09-03 09:13] VITALS: BP 102/58
[2018-09-03] MEDS: SODIUM CHLORIDE FLUSH 10ML SYR IVF SCH (09:21)
[2018-09-03] MEDS: DOCUSATE 100 MG CAPSULE PO SCH (09:21)
[2018-09-03] MEDS: LISINOPRIL 5 MG TABLET PO SCH (09:21)
[2018-09-03] MEDS: CLOPIDOGREL 75 MG TABLET PO SCH (09:22)
[2018-09-03] MEDS: ASPIRIN 81 MG TABLET EC PO SCH (09:23)
[2018-09-03] MEDS: ENOXAPARIN 40 MG/0.4 ML SQ SCH (09:23)
[2018-09-03] MEDS: FOLIC ACID 1 MG TABLET PO SCH (09:23)
[2018-09-03] MEDS: CHOLECALCIFEROL 1,000 UNIT TABLET PO SCH (09:23)
[2018-09-03] MEDS: HYDROXYCHLOROQUINE 200 MG TABLET PO SCH (09:25)
[2018-09-03 14:33] VITALS: BP 103/65
== END 2018-09-03 22:54 | disposition short-term general hospital (02) | DRG 233 ==
LOC: CACL 10:11 → 5SO 14:45 → CACL 16:59 → 5SO 17:00 → CSU 08-23 07:50 → 5SO 08-27 11:57
PROVIDERS: ADMIT Internal Medicine Cardiovascular Disease; ATTEND Internal Medicine Cardiovascular Disease
PROC: 4A023N7 Measurement of Cardiac Sampling and Pressure, Left Heart, Percutaneous Approach (ICD-10-PCS; 2018-08-21)
PROC: 4A033BC Measurement of Arterial Pressure, Coronary, Percutaneous Approach (ICD-10-PCS; 2018-08-21)
PROC: B2111ZZ Fluoroscopy of Multiple Coronary Arteries using Low Osmolar Contrast (ICD-10-PCS; 2018-08-21)
PROC: B2151ZZ Fluoroscopy of Left Heart using Low Osmolar Contrast (ICD-10-PCS; 2018-08-21)
PROC: 021009W Bypass Coronary Artery, One Artery from Aorta with Autologous Venous Tissue, Open Approach (ICD-10-PCS; 2018-08-23)
PROC: 06BP4ZZ Excision of Right Saphenous Vein, Percutaneous Endoscopic Approach (ICD-10-PCS; 2018-08-23)
PROC: 0W3C0ZZ Control Bleeding in Mediastinum, Open Approach (ICD-10-PCS; 2018-08-23)
PROC: 5A1221Z Performance of Cardiac Output, Continuous (ICD-10-PCS; 2018-08-23)
PROC: 30233M1 Transfusion of Nonautologous Plasma Cryoprecipitate into Peripheral Vein, Percutaneous Approach (ICD-10-PCS; 2018-08-23)
PROC: 30233N1 Transfusion of Nonautologous Red Blood Cells into Peripheral Vein, Percutaneous Approach (ICD-10-PCS; 2018-08-23)
PROC: 30233R1 Transfusion of Nonautologous Platelets into Peripheral Vein, Percutaneous Approach (ICD-10-PCS; 2018-08-23)
PROC: B24BZZ4 Ultrasonography of Heart with Aorta, Transesophageal (ICD-10-PCS; 2018-08-23)
PROC: 02100Z9 Bypass Coronary Artery, One Artery from Left Internal Mammary, Open Approach (ICD-10-PCS; principal; 2018-08-23 07:30)
PROC: 0B9M8ZZ Drainage of Bilateral Lungs, Via Natural or Artificial Opening Endoscopic (ICD-10-PCS; 2018-08-24)
DX: I25.119 Atherosclerotic heart disease of native coronary artery with unspecified angina pectoris (principal); I50.31 Acute diastolic (congestive) heart failure; J98.11 Atelectasis; J84.9 Interstitial pulmonary disease, unspecified; R91.1 Solitary pulmonary nodule; Z88.8 Allergy status to other drugs, medicaments and biological substances; Z79.82 Long term (current) use of aspirin; Z79.899 Other long term (current) drug therapy; E78.00 Pure hypercholesterolemia, unspecified; E78.5 Hyperlipidemia, unspecified; I48.91 Unspecified atrial fibrillation; Z72.0 Tobacco use; I25.82 Chronic total occlusion of coronary artery
CPT/HCPCS: 36415; 36600; 71045; 71046; 71275; 74175; 80048; 80053; 81001; 81003; 82040; 82330; 82800; 82803; 82810; 82947; 82962; 83036; 83735; 84132; 84295; 85014; 85018; 85025; 85049; 85347; 85610; 85730; 86850; 86870; 86900; 86922; 86923; 87040; 87070; 87081; 87205; 92920; 93005; 93306; 93312; 93321; 93325; 93458; 93571; 93572; 93880; 93970; 94002; 94003; 94640; 99156; 99157; C1769; C1894; G0378; J0171; J0583; J0697; J1644; J1650; J1815; J1940; J2250; J2704; J2720; J3010; J3370; J3475; J3480; J3490; J7189; J7620; P9045; P9047; Q9967; 92928; C1751; C1760; C1887; J0282; J0360; J2270; J2370; J2440; J7040; J7050; J7120; P9012; P9016; P9035

== ENCOUNTER → 2018-11-13 | Outpatient (CLI) | payer MEDICARE ==
[~2018-11-13] MED LIST changes: +CHOL100012 PO; +CLOP75TA PO; +FOLI-17 PO; +HYDR-3245 PO; +HYDR200T72 PO; +MEGA RED PO; +MELO15TA24 PO; +METH2.5T PO; +METO25TA91 PO; +ROSU5TAB PO; +UBID100C41 PO
== END | disposition home or self-care (01) ==
LOC: CFH 11:04
PROVIDERS: ATTEND Physician Assistant
DX: J84.9 Interstitial pulmonary disease, unspecified (principal); I51.7 Cardiomegaly; Z95.1 Presence of aortocoronary bypass graft; J18.9 Pneumonia, unspecified organism
CPT/HCPCS: 71046

== ENCOUNTER → 2018-12-11 | Outpatient (CLI) | payer MEDICARE | END | disposition home or self-care (01) | LOC: CVU 07:32 | PROVIDERS: ATTEND Internal Medicine Cardiovascular Disease | DX: I35.0 Nonrheumatic aortic (valve) stenosis (principal); I10 Essential (primary) hypertension; R42 Dizziness and giddiness; Z95.1 Presence of aortocoronary bypass graft | CPT/HCPCS: 36415; 83880; 93306 ==

== ENCOUNTER → 2018-12-17 | Outpatient (CLI) | payer MEDICARE | END | disposition home or self-care (01) | LOC: CFH 15:22 | PROVIDERS: ATTEND Internal Medicine Critical Care Medicine | DX: J84.9 Interstitial pulmonary disease, unspecified (principal); R59.1 Generalized enlarged lymph nodes; I70.0 Atherosclerosis of aorta | CPT/HCPCS: 71250 ==

== ENCOUNTER → 2019-01-17 | Outpatient (CLI) | payer MEDICARE | END | disposition home or self-care (01) | LOC: PETCFH 12:38 | PROVIDERS: ATTEND Registered Nurse | DX: R91.1 Solitary pulmonary nodule (principal); J84.9 Interstitial pulmonary disease, unspecified; I70.0 Atherosclerosis of aorta; J98.4 Other disorders of lung; I77.819 Aortic ectasia, unspecified site | CPT/HCPCS: 78815; A9552 ==

== ENCOUNTER 2019-02-26 06:08 | Day surgery (SDC) | payer MEDICARE ==
[~2019-02-26] VITALS: Ht 172.7 cm; Wt 92.0 kg
[2019-02-26 07:10] VITALS: BP 133/74
[2019-02-26] MEDS ORDERED: SODIUM CHLORIDE 0.9% 1,000 ML IV SCH (07:30)
[2019-02-26] MEDS ORDERED: prednisone PO (07:34)
[2019-02-26] MEDS ORDERED: APIX2.5T PO (07:34)
[2019-02-26] MEDS ORDERED: FENTANYL PF 100 MCG/2ML ONE ×2 (08:20→15:31)
[2019-02-26] MEDS ORDERED: NALOXONE 1 MG/ML, 2ML ONE (08:20)
[2019-02-26] MEDS ORDERED: FLUMAZENIL 0.1 MG/1 ML, 5ML ONE (08:20)
[2019-02-26] MEDS ORDERED: MIDAZOLAM 1 MG/ML, 5ML ONE ×2 (08:20→15:32)
[2019-02-26] MEDS ORDERED: HYDROcodone/APAP 5/325 TABLET ONE (13:53)
[2019-02-26] MEDS ORDERED: HYDROcodone/APAP 5/325 TABLET PO ONE (14:00)
[2019-02-26] MEDS ORDERED: LIDOCAINE-MPF 1%, 5ML ONE (15:29)
== END 2019-02-26 17:20 | disposition home or self-care (01) ==
LOC: OUT 06:08 → EDSTATUS 08:00 → OUT 17:20
PROVIDERS: ATTEND Internal Medicine Critical Care Medicine
DX: C34.91 Malignant neoplasm of unspecified part of right bronchus or lung (principal); J93.9 Pneumothorax, unspecified; I10 Essential (primary) hypertension; Z87.891 Personal history of nicotine dependence; Z95.1 Presence of aortocoronary bypass graft
CPT/HCPCS: 32405; 32557; 71045; 77012; 88305; 99156; 99157; C1729; C1769; J2250; J3010; J7030; J2310

== ENCOUNTER → 2019-02-27 | Outpatient (CLI) | payer MEDICARE ==
[~2019-02-27] MED LIST changes: +APIX2.5T PO; +prednisone PO
== END | disposition home or self-care (01) ==
LOC: RAD 09:06
PROVIDERS: ATTEND Radiology Diagnostic Radiology
DX: J84.9 Interstitial pulmonary disease, unspecified (principal); J93.9 Pneumothorax, unspecified; F17.200 Nicotine dependence, unspecified, uncomplicated; Z88.8 Allergy status to other drugs, medicaments and biological substances
CPT/HCPCS: 71046

== ENCOUNTER → 2019-03-14 | Outpatient (CLI) | payer MEDICARE ==
[~2019-03-14] MED LIST changes: +GADOBUTROL 10 MMOL/10 ML PFS ONE
== END | disposition home or self-care (01) ==
LOC: CFH 09:37
PROVIDERS: ATTEND Internal Medicine Critical Care Medicine
DX: C34.31 Malignant neoplasm of lower lobe, right bronchus or lung (principal); G31.89 Other specified degenerative diseases of nervous system; I10 Essential (primary) hypertension; E78.00 Pure hypercholesterolemia, unspecified; Z87.891 Personal history of nicotine dependence
CPT/HCPCS: 70553; A9585

== ENCOUNTER → 2019-03-17 | Outpatient (CLI) | payer MEDICARE ==
[~2019-03-17] MED LIST changes: -GADOBUTROL 10 MMOL/10 ML PFS ONE
== END | disposition home or self-care (01) ==
LOC: ROC 08:51
PROVIDERS: ATTEND Radiology Radiation Oncology
DX: C34.31 Malignant neoplasm of lower lobe, right bronchus or lung (principal); C79.31 Secondary malignant neoplasm of brain; C79.89 Secondary malignant neoplasm of other specified sites; E78.00 Pure hypercholesterolemia, unspecified; I10 Essential (primary) hypertension; M19.90 Unspecified osteoarthritis, unspecified site; Z79.82 Long term (current) use of aspirin; Z79.899 Other long term (current) drug therapy; Z87.891 Personal history of nicotine dependence; Z95.1 Presence of aortocoronary bypass graft
CPT/HCPCS: G0463

== ENCOUNTER → 2019-03-27 | Outpatient (CLI) | payer MEDICARE ==
[~2019-03-27] MED LIST changes: +GADOBUTROL 10 MMOL/10 ML PFS ONE
== END | disposition home or self-care (01) ==
LOC: CFH 14:33
PROVIDERS: ATTEND Radiology Radiation Oncology
DX: C34.31 Malignant neoplasm of lower lobe, right bronchus or lung (principal); C79.31 Secondary malignant neoplasm of brain
CPT/HCPCS: 70553; A9585

== ENCOUNTER 2019-04-30 10:57 | Inpatient (IN) | payer MEDICARE ==
[~2019-04-30] VITALS: Ht 172.7 cm; Wt 94.3 kg
[~2019-04-30 10:57] MED LIST changes: +CHOL500015 PO; -GADOBUTROL 10 MMOL/10 ML PFS ONE; +OMEP-110 PO; +PRED10TA PO; +SENN-92 PO; +VIT B12 PO
--- NOTE | 2019-04-30 11:15 | NUR ---
PT TO ROOM 1 VIA WHEELCHAIR WITH . PT C/O SHORTNESS OF BREATH. 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 2 WEEKS AGO PT UNDERWENT CYBERKNIFE FOR THE BRAIN CANCER. WAS IN [place] AND DX WITH PNEUMONIA ON SUNDAY EVENING. RETURNED TO [place] LAST NIGHT AND THIS MORNING HAS EXPERIENCED EXERTIONAL SOB. PT ON HOME O2 AT 5 L. PT AAO X 4, VSS, ON 7 L NC, LUNG SOUNDS VERY DIMINISHED THROUGHOUT. DRESSED IN GOWN AND RESTING ON GURNEY, ATTACHED TO MONITOR, CALL LIGHT AND BELONGINGS WITHIN REACH, AT BEDSIDE.
[2019-04-30] MEDS ORDERED: PRED5TAB PO (11:38)
[2019-04-30] MEDS ORDERED: LEVO750T6 PO (11:38)
--- NOTE | 2019-04-30 11:39 | NUR ---
PT TO XRAY.
[2019-04-30 11:58] LABS: BASOPHILS # (AUTO) 0.05 x10^3/uL (0-0.1); BASOPHILS % (AUTO) 1 % (0-1); EOSINOPHILS # (AUTO) 0.18 x10^3/uL (0-0.4); EOSINOPHILS % (AUTO) 2 % (1-7); LYMPHOCYTES % (AUTO) 13 % (22-44); MD NO; MEAN CORPUSCULAR HEMOGLOBIN 32.8 pg (27.5-34.5); MEAN CORPUSCULAR HGB CONC 33.6 g/dL (33.2-36.2); MEAN CORPUSCULAR VOLUME 97.6 fL (81-97); MEAN PLATELET VOLUME 8.1 fL (7.4-10.4); MONOCYTES # (AUTO) 0.64 x10^3/uL (0.2-0.8); MONOCYTES % (AUTO) 8 % (2-9); NEUTROPHILS # (AUTO) 6.17 x10^3/uL (1.8-6.8); NEUTROPHILS % (AUTO) 77 % (42-75); PLATELET COUNT 152 x10^3/uL (130-400); RED BLOOD COUNT 3.87 x10^6/uL (4.38-5.82); RED CELL DISTRIBUTION WIDTH 14.3 % (9.4-14.8)
[2019-04-30 12:14] LABS: ALANINE AMINOTRANSFERASE 27 U/L (12-78); ALBUMIN 2.8 g/dL (3.4-5.0); ANION GAP 8 mmol/L (5-15); CALCIUM 9.1 mg/dL (8.5-10.1); CHLORIDE 110 mmol/L (98-107)
[2019-04-30 12:18] LABS: ALKALINE PHOSPHATASE 78 U/L (45-117); BILIRUBIN,TOTAL 0.7 mg/dL (0.2-1.0); TOTAL PROTEIN 7.2 g/dL (6.4-8.2); TROPONIN I 0.082 ng/mL (0.000-0.045)
--- NOTE | 2019-04-30 12:24 | NUR ---
PT RESTING COMFORTABLY ON NOIRS, VSS, AT BEDSIDE.
--- NOTE | 2019-04-30 14:04 | NUR ---
Patient returned from CT scan, plan of care updated. Patient resting in [facility], no complaints at this time, warm blankets provided as requested by patient. Call ivy within reach.
[2019-04-30] MEDS ORDERED: hydrALAzine 20 MG/ML, 1ML IVPush PRN (15:00)
[2019-04-30] MEDS ORDERED: LEVOFLOXACIN/PMX 750MG/150ML 150 ML IV SCH (15:00)
[2019-04-30] MEDS ORDERED: ACETAMINOPHEN 325 MG TABLET PO PRN (15:00)
[2019-04-30] MEDS ORDERED: ONDANSETRON 2MG/ML, 2ML IVPush PRN (15:00)
[2019-04-30] MEDS ORDERED: DEXTROSE 50%, 50ML SYRINGE IVPush PRN (15:00)
[2019-04-30] MEDS ORDERED: NITROGLYCERIN 0.4 MG BOTTLE (25 TABS) SL PRN (15:00)
[2019-04-30] MEDS ORDERED: GLUCAGON 1 MG IM PRN (15:00)
[2019-04-30] MEDS ORDERED: morphine SULFATE 10 MG/ML, 1ML IVPush PRN (15:00)
[2019-04-30] MEDS ORDERED: DEXTROSE 4 GM TAB.CHEW PO PRN (15:00)
[2019-04-30] MEDS ORDERED: NITROGLYCERIN 0.4 MG/SPRAY SL PRN (15:00)
[2019-04-30] MEDS ORDERED: OMNIPAQUE 350 MG/ML, 100ML BOTTLE ONE (15:08)
[2019-04-30] MEDS: INSULIN LISPRO 100 UNITS/ML, PEN SQ-INSULIN SCH ×2 (16:00→21:00)
[2019-04-30 16:18] VITALS: BP 147/84
[2019-04-30] MEDS: HYDROcodone/APAP 5/325 TABLET PO PRN ×2 (16:39→20:44)
[2019-04-30 19:18] VITALS: BP 147/78
[2019-04-30 19:26] LABS: TROPONIN I 0.089 ng/mL (0.000-0.045)
[2019-04-30] MEDS: SENNA/DOCUSATE TABLET PO SCH (20:43)
[2019-04-30] MEDS: APIXABAN 5 MG TABLET PO SCH (20:43)
[2019-04-30] MEDS: SODIUM CHLORIDE FLUSH 10ML SYR IVF SCH (20:44)
[2019-04-30] MEDS: ATORVASTATIN 20 MG TABLET PO SCH (20:44)
[2019-04-30] MEDS ORDERED: ALBUTEROL SULFATE 2.5 MG/3 ML ONE (20:59)
[2019-04-30] MEDS ORDERED: ALBUTEROL SULFATE 2.5 MG/3 ML NPPB PRN (21:00)
[2019-05-01 02:29] LABS: TROPONIN I 0.073 ng/mL (0.000-0.045)
[2019-05-01 03:53] VITALS: BP 142/80
[2019-05-01] MEDS ORDERED: ALBUTEROL SULFATE 2.5 MG/3 ML NPPB PRN (04:30)
[2019-05-01 05:29] LABS: ANION GAP 5 mmol/L (5-15); CALCIUM 8.4 mg/dL (8.5-10.1); CHLORIDE 107 mmol/L (98-107); CREATININE 0.99 mg/dL (0.7-1.3)
[2019-05-01 05:31] LABS: MEAN CORPUSCULAR HEMOGLOBIN 32.7 pg (27.5-34.5); MEAN CORPUSCULAR HGB CONC 33.2 g/dL (33.2-36.2); MEAN CORPUSCULAR VOLUME 98.5 fL (81-97); MEAN PLATELET VOLUME 7.8 fL (7.4-10.4); PLATELET COUNT 122 x10^3/uL (130-400); RED BLOOD COUNT 3.42 x10^6/uL (4.38-5.82); RED CELL DISTRIBUTION WIDTH 13.7 % (9.4-14.8)
[2019-05-01] MEDS: OMEPRAZOLE 20 MG CAPSULE.DR PO SCH (05:33)
[2019-05-01] MEDS: HYDROcodone/APAP 5/325 TABLET PO PRN ×2 (05:33→16:28)
[2019-05-01 05:48] LABS: BASOPHILS # (AUTO) 0.03 x10^3/uL (0-0.1); BASOPHILS % (AUTO) 1 % (0-1); EOSINOPHILS # (AUTO) 0.17 x10^3/uL (0-0.4); EOSINOPHILS % (AUTO) 3 % (1-7); LYMPHOCYTES # (AUTO) 1.12 x10^3/uL (1-3.4); LYMPHOCYTES % (AUTO) 21 % (22-44); MD SCAN; MONOCYTES # (AUTO) 0.47 x10^3/uL (0.2-0.8); MONOCYTES % (AUTO) 9 % (2-9); NEUTROPHILS # (AUTO) 3.64 x10^3/uL (1.8-6.8); NEUTROPHILS % (AUTO) 67 % (42-75)
[2019-05-01] MEDS ORDERED: ALBUTEROL SULFATE 2.5 MG/3 ML NPPB SCH (07:00)
[2019-05-01 07:35] VITALS: BP 134/83
[2019-05-01] MEDS: INSULIN LISPRO 100 UNITS/ML, PEN SQ-INSULIN SCH ×4 (08:23→20:30)
[2019-05-01] MEDS ORDERED: SENNA/DOCUSATE TABLET PO SCH (09:00)
[2019-05-01] MEDS: LISINOPRIL 5 MG TABLET PO SCH (09:46)
[2019-05-01] MEDS: ASPIRIN 81 MG TABLET EC PO SCH (09:46)
[2019-05-01] MEDS: SENNA/DOCUSATE TABLET PO SCH ×2 (09:46→20:35)
[2019-05-01] MEDS: CHOLECALCIFEROL 5,000u TAB PO SCH (09:47)
[2019-05-01] MEDS: FOLIC ACID 1 MG TABLET PO SCH (09:47)
[2019-05-01] MEDS: METOPROLOL SUCCINATE 25 MG TAB.ER.24H PO SCH (09:47)
[2019-05-01] MEDS: APIXABAN 5 MG TABLET PO SCH ×2 (09:47→20:35)
[2019-05-01] MEDS: SODIUM CHLORIDE FLUSH 10ML SYR IVF SCH ×2 (09:48→20:36)
[2019-05-01] MEDS: LEVOFLOXACIN/PMX 750MG/150ML 150 ML IV SCH (09:52)
[2019-05-01] MEDS: ALBUTEROL/IPRATROPIUM 2.5MG/0.5MG, 3 ML NPPB SCH ×3 (11:44→19:40)
[2019-05-01] MEDS ORDERED: FUROSEMIDE 40 MG/4 ML IV ONE (12:00)
[2019-05-01] MEDS ORDERED: POTASSIUM CHLORIDE 20 MEQ TAB.ER.PRT PO ONE (12:00)
[2019-05-01 13:30] VITALS: BP 158/71
[2019-05-01 19:38] VITALS: BP 127/77
[2019-05-01] MEDS: ATORVASTATIN 20 MG TABLET PO SCH (20:35)
[2019-05-02 00:39] VITALS: BP 125/73
[2019-05-02 04:52] LABS: BASOPHILS # (AUTO) 0.02 x10^3/uL (0-0.1); BASOPHILS % (AUTO) 0 % (0-1); EOSINOPHILS # (AUTO) 0.19 x10^3/uL (0-0.4); EOSINOPHILS % (AUTO) 3 % (1-7); LYMPHOCYTES # (AUTO) 1.41 x10^3/uL (1-3.4); LYMPHOCYTES % (AUTO) 20 % (22-44); MD NO; MEAN CORPUSCULAR HEMOGLOBIN 32.9 pg (27.5-34.5); MEAN CORPUSCULAR HGB CONC 33.5 g/dL (33.2-36.2); MEAN CORPUSCULAR VOLUME 98.3 fL (81-97); MEAN PLATELET VOLUME 7.6 fL (7.4-10.4); MONOCYTES # (AUTO) 0.58 x10^3/uL (0.2-0.8); MONOCYTES % (AUTO) 8 % (2-9); NEUTROPHILS # (AUTO) 4.95 x10^3/uL (1.8-6.8); NEUTROPHILS % (AUTO) 69 % (42-75); PLATELET COUNT 146 x10^3/uL (130-400); RED BLOOD COUNT 3.57 x10^6/uL (4.38-5.82); RED CELL DISTRIBUTION WIDTH 14.3 % (9.4-14.8)
[2019-05-02 05:01] LABS: ANION GAP 5 mmol/L (5-15); CALCIUM 8.8 mg/dL (8.5-10.1); CHLORIDE 108 mmol/L (98-107); CREATININE 0.97 mg/dL (0.7-1.3)
[2019-05-02] MEDS: OMEPRAZOLE 20 MG CAPSULE.DR PO SCH (05:28)
[2019-05-02] MEDS: HYDROcodone/APAP 5/325 TABLET PO PRN ×4 (05:30→17:48)
[2019-05-02] MEDS: ALBUTEROL/IPRATROPIUM 2.5MG/0.5MG, 3 ML NPPB SCH ×4 (06:25→20:00)
[2019-05-02] MEDS: INSULIN LISPRO 100 UNITS/ML, PEN SQ-INSULIN SCH ×4 (07:00→21:00)
[2019-05-02 07:14] VITALS: BP 117/70
[2019-05-02] MEDS: ASPIRIN 81 MG TABLET EC PO SCH (08:16)
[2019-05-02] MEDS: FOLIC ACID 1 MG TABLET PO SCH (08:16)
[2019-05-02] MEDS: SENNA/DOCUSATE TABLET PO SCH ×2 (08:17→20:03)
[2019-05-02] MEDS: APIXABAN 5 MG TABLET PO SCH ×2 (08:17→20:03)
[2019-05-02] MEDS: CHOLECALCIFEROL 5,000u TAB PO SCH (08:17)
[2019-05-02] MEDS: LISINOPRIL 5 MG TABLET PO SCH (08:17)
[2019-05-02] MEDS: METOPROLOL SUCCINATE 25 MG TAB.ER.24H PO SCH (08:18)
[2019-05-02] MEDS: SODIUM CHLORIDE FLUSH 10ML SYR IVF SCH ×2 (08:18→20:09)
[2019-05-02] MEDS ORDERED: MELOXICAM 15 MG TABLET PO SCH (09:00)
[2019-05-02] MEDS: LEVOFLOXACIN/PMX 750MG/150ML 150 ML IV SCH (09:26)
[2019-05-02 13:44] VITALS: BP 140/84
[2019-05-02] MEDS ORDERED: FUROSEMIDE 20 MG/2 ML IV ONE (18:00)
[2019-05-02] MEDS ORDERED: POTASSIUM CHLORIDE 20 MEQ TAB.ER.PRT PO ONE (18:30)
[2019-05-02 18:59] VITALS: BP 130/56
[2019-05-02] MEDS: CEFTRIAXONE PMX 1GM/50ML 50 ML IV SCH (20:02)
[2019-05-02] MEDS: MONTELUKAST 10 MG TABLET PO SCH (20:03)
[2019-05-02] MEDS: ATORVASTATIN 20 MG TABLET PO SCH (20:03)
[2019-05-02] MEDS: DOXYCYCLINE 100MG CAP PO SCH (20:03)
[2019-05-03 01:19] VITALS: BP 110/71
[2019-05-03] MEDS: OMEPRAZOLE 20 MG CAPSULE.DR PO SCH (06:09)
[2019-05-03] MEDS: HYDROcodone/APAP 5/325 TABLET PO PRN ×3 (06:10→20:05)
[2019-05-03] MEDS: ALBUTEROL/IPRATROPIUM 2.5MG/0.5MG, 3 ML NPPB SCH ×4 (06:55→20:00)
[2019-05-03 07:24] VITALS: BP 115/72
[2019-05-03] MEDS: INSULIN LISPRO 100 UNITS/ML, PEN SQ-INSULIN SCH ×4 (07:36→20:06)
[2019-05-03 08:23] LABS: ANION GAP 5 mmol/L (5-15); CALCIUM 9.1 mg/dL (8.5-10.1); CHLORIDE 109 mmol/L (98-107); CREATININE 1.02 mg/dL (0.7-1.3)
[2019-05-03] MEDS: ASPIRIN 81 MG TABLET EC PO SCH (08:42)
[2019-05-03] MEDS: DOXYCYCLINE 100MG CAP PO SCH ×2 (08:42→20:05)
[2019-05-03] MEDS: FOLIC ACID 1 MG TABLET PO SCH (08:43)
[2019-05-03] MEDS: METOPROLOL SUCCINATE 25 MG TAB.ER.24H PO SCH (08:43)
[2019-05-03] MEDS: CHOLECALCIFEROL 5,000u TAB PO SCH (08:43)
[2019-05-03] MEDS: APIXABAN 5 MG TABLET PO SCH ×2 (08:43→20:05)
[2019-05-03] MEDS: SENNA/DOCUSATE TABLET PO SCH ×2 (08:43→20:05)
[2019-05-03] MEDS: LISINOPRIL 5 MG TABLET PO SCH (08:43)
[2019-05-03] MEDS: SODIUM CHLORIDE FLUSH 10ML SYR IVF SCH ×2 (08:44→20:06)
[2019-05-03 13:12] VITALS: BP 103/67
[2019-05-03] MEDS: MONTELUKAST 10 MG TABLET PO SCH (16:00)
[2019-05-03] MEDS ORDERED: FLUTICASONE/VILANTEROL 200-25MCG/INH INH SCH (19:00)
[2019-05-03] MEDS: BUDESONIDE 0.5 MG/2 ML INHA NPPB SCH (20:00)
[2019-05-03] MEDS: ATORVASTATIN 20 MG TABLET PO SCH (20:05)
[2019-05-03] MEDS: CEFTRIAXONE PMX 1GM/50ML 50 ML IV SCH (20:05)
[2019-05-03 20:15] VITALS: BP 123/80
[2019-05-04 03:38] VITALS: BP 96/59
[2019-05-04] MEDS: OMEPRAZOLE 20 MG CAPSULE.DR PO SCH (06:02)
[2019-05-04] MEDS: HYDROcodone/APAP 5/325 TABLET PO PRN ×2 (06:02→12:55)
[2019-05-04] MEDS: BUDESONIDE 0.5 MG/2 ML INHA NPPB SCH (06:35)
[2019-05-04] MEDS: ALBUTEROL/IPRATROPIUM 2.5MG/0.5MG, 3 ML NPPB SCH (06:35)
[2019-05-04] MEDS: INSULIN LISPRO 100 UNITS/ML, PEN SQ-INSULIN SCH ×2 (07:56→11:00)
[2019-05-04 08:35] VITALS: BP 122/67
[2019-05-04] MEDS: FOLIC ACID 1 MG TABLET PO SCH (08:44)
[2019-05-04] MEDS: DOXYCYCLINE 100MG CAP PO SCH (08:44)
[2019-05-04] MEDS: CHOLECALCIFEROL 5,000u TAB PO SCH (08:44)
[2019-05-04] MEDS: METOPROLOL SUCCINATE 25 MG TAB.ER.24H PO SCH (08:45)
[2019-05-04] MEDS: LISINOPRIL 5 MG TABLET PO SCH (08:45)
[2019-05-04] MEDS: APIXABAN 5 MG TABLET PO SCH (08:45)
[2019-05-04] MEDS: ASPIRIN 81 MG TABLET EC PO SCH (08:45)
[2019-05-04] MEDS: SENNA/DOCUSATE TABLET PO SCH (08:50)
[2019-05-04] MEDS: SODIUM CHLORIDE FLUSH 10ML SYR IVF SCH (08:51)
[2019-05-04 09:34] LABS: ANION GAP 8 mmol/L (5-15); CALCIUM 8.9 mg/dL (8.5-10.1); CHLORIDE 107 mmol/L (98-107)
[2019-05-04 09:39] LABS: CREATININE 0.94 mg/dL (0.7-1.3)
[2019-05-04] MEDS ORDERED: BUDE10.2 INH (12:13)
[2019-05-04] MEDS ORDERED: MONT10TA9 PO (12:13)
[2019-05-04] MEDS ORDERED: CEFU250T66 PO (12:13)
[2019-05-04] MEDS ORDERED: DOXY100C2 PO (12:13)
[2019-05-04 13:21] VITALS: BP 111/73
[2019-05-04] MEDS ORDERED: ALBUTEROL/IPRATROPIUM 2.5MG/0.5MG, 3 ML NPPB SCH (15:00)
== END 2019-05-04 13:40 | disposition home or self-care (01) | DRG 280 ==
LOC: ED 12:23 → EDIP 14:26 → 5SO 16:09 → 3NW 05-01 15:30
PROVIDERS: ADMIT Internal Medicine; ATTEND Internal Medicine
DX: I21.A1 Myocardial infarction type 2 (principal); J18.1 Lobar pneumonia, unspecified organism; J96.21 Acute and chronic respiratory failure with hypoxia; I50.33 Acute on chronic diastolic (congestive) heart failure; D68.69 Other thrombophilia; C79.31 Secondary malignant neoplasm of brain; C34.90 Malignant neoplasm of unspecified part of unspecified bronchus or lung; C78.00 Secondary malignant neoplasm of unspecified lung; I35.0 Nonrheumatic aortic (valve) stenosis; E78.5 Hyperlipidemia, unspecified; E11.9 Type 2 diabetes mellitus without complications; D53.9 Nutritional anemia, unspecified; I48.91 Unspecified atrial fibrillation; I25.10 Atherosclerotic heart disease of native coronary artery without angina pectoris; I11.0 Hypertensive heart disease with heart failure; J45.909 Unspecified asthma, uncomplicated; Z88.8 Allergy status to other drugs, medicaments and biological substances; Z99.81 Dependence on supplemental oxygen; Z95.1 Presence of aortocoronary bypass graft; Z87.891 Personal history of nicotine dependence; Z87.01 Personal history of pneumonia (recurrent); Z85.118 Personal history of other malignant neoplasm of bronchus and lung; Z80.3 Family history of malignant neoplasm of breast; Z79.01 Long term (current) use of anticoagulants; I25.2 Old myocardial infarction
CPT/HCPCS: 36415; 36600; 71045; 71046; 71275; 80048; 80053; 80069; 82803; 82962; 83880; 84145; 84484; 85025; 85379; 93005; 94640; G0378; J0696; J1940; J1956; J7613; J7620; J7626; Q9967; J7512

== ENCOUNTER → 2019-05-23 | Outpatient (CLI) | payer MEDICARE ==
[~2019-05-23] MED LIST changes: +BUDE10.2 INH; +CEFU250T66 PO; +DOXY100C2 PO; +LEVO750T6 PO; +MONT10TA9 PO; +PRED5TAB PO
[2019-05-23 12:55] LABS: ALANINE AMINOTRANSFERASE 32 U/L (12-78); ALBUMIN 3.7 g/dL (3.4-5.0); ANION GAP 6 mmol/L (5-15); CHLORIDE 104 mmol/L (98-107); CREATININE 0.97 mg/dL (0.7-1.3)
[2019-05-23 12:58] LABS: ALKALINE PHOSPHATASE 88 U/L (45-117); BILIRUBIN,TOTAL 1.1 mg/dL (0.2-1.0); TOTAL PROTEIN 7.8 g/dL (6.4-8.2)
== END | disposition home or self-care (01) ==
LOC: LAB 08:50
PROVIDERS: ATTEND Internal Medicine Hematology & Oncology
DX: Z51.11 Encounter for antineoplastic chemotherapy (principal); C34.31 Malignant neoplasm of lower lobe, right bronchus or lung; C79.31 Secondary malignant neoplasm of brain; I25.810 Atherosclerosis of coronary artery bypass graft(s) without angina pectoris; M06.9 Rheumatoid arthritis, unspecified
CPT/HCPCS: 36415; 80053

== ENCOUNTER 2019-05-30 09:08 | Outpatient (CLI) | payer MEDICARE ==
[2019-05-30] MEDS ORDERED: GADOBUTROL 10 MMOL/10 ML VIAL ONE (09:30)
[2019-05-30 13:14] LABS: ALBUMIN 3.8 g/dL (3.4-5.0); ANION GAP 8 mmol/L (5-15); CHLORIDE 103 mmol/L (98-107)
[2019-05-30 13:23] LABS: ALANINE AMINOTRANSFERASE 32 U/L (12-78); ALKALINE PHOSPHATASE 88 U/L (45-117); BILIRUBIN,TOTAL 1.3 mg/dL (0.2-1.0); CREATININE 0.89 mg/dL (0.7-1.3); TOTAL PROTEIN 7.7 g/dL (6.4-8.2)
== END 2019-05-30 23:59 | disposition home or self-care (01) ==
LOC: CFH 09:08
PROVIDERS: ATTEND Radiology Radiation Oncology
DX: C79.31 Secondary malignant neoplasm of brain (principal); I25.810 Atherosclerosis of coronary artery bypass graft(s) without angina pectoris; M06.9 Rheumatoid arthritis, unspecified; Z85.118 Personal history of other malignant neoplasm of bronchus and lung
CPT/HCPCS: 36415; 70553; 80053; A9585

== ENCOUNTER 2019-06-06 09:19 | Outpatient (CLI) | payer MEDICARE | END 2019-06-06 23:59 | disposition home or self-care (01) | LOC: CFH 09:19 | PROVIDERS: ATTEND Internal Medicine Hematology & Oncology | DX: Z51.11 Encounter for antineoplastic chemotherapy (principal); C34.31 Malignant neoplasm of lower lobe, right bronchus or lung; C79.31 Secondary malignant neoplasm of brain; I25.810 Atherosclerosis of coronary artery bypass graft(s) without angina pectoris; M06.9 Rheumatoid arthritis, unspecified | CPT/HCPCS: 36415; 77386; 80053 ==

== ENCOUNTER 2019-06-09 11:29 | Outpatient (CLI) | payer MEDICARE ==
[2019-06-09] MEDS ORDERED: OMNIPAQUE 350 MG/ML, 100ML BOTTLE ONE (15:34)
[2019-07-01] MEDS ORDERED: PROC10TA2 PO (15:39)
[2019-07-01] MEDS ORDERED: METF500T17 PO (15:39)
[2019-07-01] MEDS ORDERED: ONDA4TAB7 PO (15:39)
[2019-07-01] MEDS ORDERED: MELO15TA24 PO (15:39)
== END 2019-06-09 23:59 | disposition home or self-care (01) ==
LOC: CFH 11:29
PROVIDERS: ATTEND Internal Medicine Hematology & Oncology
DX: J98.4 Other disorders of lung (principal); R59.0 Localized enlarged lymph nodes
CPT/HCPCS: 71275; Q9967; 77336; 77386

== ENCOUNTER 2019-06-13 09:12 | Outpatient (CLI) | payer MEDICARE ==
[2019-06-13 13:08] LABS: ALANINE AMINOTRANSFERASE 29 U/L (12-78); ANION GAP 11 mmol/L (5-15); CALCIUM 9.3 mg/dL (8.5-10.1); CHLORIDE 103 mmol/L (98-107); CREATININE 0.99 mg/dL (0.7-1.3)
[2019-06-13 13:10] LABS: ALKALINE PHOSPHATASE 97 U/L (45-117); BILIRUBIN,TOTAL 1.1 mg/dL (0.2-1.0); TOTAL PROTEIN 8.4 g/dL (6.4-8.2)
[2019-07-01] MEDS ORDERED: MELO15TA24 PO (15:39)
[2019-07-01] MEDS ORDERED: PROC10TA2 PO (15:39)
[2019-07-01] MEDS ORDERED: ONDA4TAB7 PO (15:39)
[2019-07-01] MEDS ORDERED: METF500T17 PO (15:39)
== END 2019-06-13 23:59 | disposition home or self-care (01) ==
LOC: CFH 09:12
PROVIDERS: ATTEND Internal Medicine Hematology & Oncology
DX: Z51.11 Encounter for antineoplastic chemotherapy (principal); C34.31 Malignant neoplasm of lower lobe, right bronchus or lung; C79.31 Secondary malignant neoplasm of brain; I25.810 Atherosclerosis of coronary artery bypass graft(s) without angina pectoris; M06.9 Rheumatoid arthritis, unspecified
CPT/HCPCS: 36415; 77336; 77386; 80053

== ENCOUNTER 2019-06-20 13:14 | Outpatient (CLI) | payer MEDICARE | END 2019-06-20 23:59 | disposition home or self-care (01) | LOC: CFH 13:14 | PROVIDERS: ATTEND Radiology Radiation Oncology | DX: C79.31 Secondary malignant neoplasm of brain (principal); G31.9 Degenerative disease of nervous system, unspecified; G93.89 Other specified disorders of brain | CPT/HCPCS: 70553; A9585 ==